=== PATIENT | female | born 1995 | race Caucasian/White ===

== ENCOUNTER → 2017-02-18 | Outpatient (CLI) | payer BC ==
--- NOTE | 2017-02-19 08:38 | EKG ---
Date Performed: 02/18/2017 Time Performed: 13:12:42 PTAGE: 21 years EKG: Sinus rhythm . Normal ECG NO PREVIOUS TRACING DOCTOR: Sohail Lemus Interpretating Date/Time 02/19/2017 08:37:17
== END ==
LOC: HCAV 13:05
PROVIDERS: ATTEND Pediatrics Pediatric Infectious Diseases
DX: R55 Syncope and collapse (principal)
CPT/HCPCS: 93005